=== PATIENT | female | born 2000 | race African-American/Black ===

== ENCOUNTER 2023-07-16 20:52 | Emergency (ER) | payer SELFPAY ==
[~2023-07-16] VITALS: Ht 170.2 cm; Wt 93.0 kg
[2023-07-16 21:20] VITALS: TEMP 98.6
[2023-07-16] MEDS ORDERED: ACETAMINOPHEN 325 MG TABLET PO ONE (21:45)
[2023-07-16 23:30] VITALS: BP 99/66; PULSE 68; RESP 16
== END 2023-07-16 23:42 | disposition home or self-care (01) ==
LOC: EMS 20:56 → EDBD 20:56 → EMS 23:42
DX: R07.81 Pleurodynia (principal); F12.90 Cannabis use, unspecified, uncomplicated
CPT/HCPCS: 71101; 99284; 73030-TC; Z7502; Z7610